=== PATIENT | female | born 1965 | race Caucasian/White ===

== ENCOUNTER 2021-05-22 15:53 | Inpatient (IN) | payer MEDICAID ==
[~2021-05-22] VITALS: Ht 154.9 cm; Wt 70.0 kg
[2021-05-22] MEDS: BLOOD SUGAR DIAGNOSTIC STRIP TEST SCH (08:00)
[2021-05-22 17:12] LABS: BASOPHILS % 0.6 % (0.0-2.0); EOSINOPHILS % 0.8 % (0.0-5.0); HEMATOCRIT. 35.3 % (36.0-48.0); HEMOGLOBIN. 12.2 g/dL (12.0-16.0); LYMPHOCYTES % 27.2 % (20.0-50.0); MEAN CORPUSCULAR HEMOGLOBIN 30.4 pg (28.0-32.0); MEAN CORPUSCULAR VOLUME 88.4 fL (81.0-99.0); MEAN PLATELET VOLUME 8.1 fl (7.4-10.4); MONOCYTES % 10.5 % (2.0-8.0); NEUTROPHILS % 60.9 % (40.0-76.0); PLATELET 263 x1000/uL (130-400); RED BLOOD CELL COUNT 3.99 mill/uL (4.2-5.4); RED CELL DISTRIBUTION WIDTH 13.7 % (11.6-14.6)
[2021-05-22 17:16] LABS: CHLORIDE 98 mEq/L (98-107)
[2021-05-22] MEDS ORDERED: ONDANSETRON HCL 4MG/2ML INJ IV STA (18:16)
[2021-05-22] MEDS ORDERED: MORPHINE SULFATE 4 MG/ML CPJ (NOT FOR IM USE) IV STA (18:16)
[2021-05-22 18:53] LABS: CLARITY URINE CLOUDY (CLEAR); COLOR URINE YELLOW (YELLOW); KETONES URINE TRACE (NEGATIVE); LEUKOCYTE ESTERASE URINE 1+ (NEGATIVE); NITRITE URINE NEGATIVE (NEGATIVE); OCCULT BLOOD URINE TRACE (NEGATIVE); PH URINE 5.5 (4.5-8.0); PROTEIN URINE 3+ (NEGATIVE); SPECIFIC GRAVITY URINE 1.015 (1.005-1.030); UROBILINOGEN URINE 0.2 E.U./dL (0.2-1.0)
[2021-05-22] MEDS ORDERED: METRONIDAZOLE 500 MG PREMIX 100 ML IV ONE (20:00)
[2021-05-22] MEDS ORDERED: CEFTRIAXONE 2 G PREMIX 50 ML IV ONE (20:00)
[2021-05-22] MEDS ORDERED: DOCUSATE SODIUM 100MG CAPSULE PO PRN (22:00)
[2021-05-22] MEDS ORDERED: TRAMADOL 50MG TABLET PO PRN (22:00)
[2021-05-22] MEDS ORDERED: DEXTROSE 50% WATER 50ML SYRINGE IV PRN (22:00)
[2021-05-22] MEDS ORDERED: MAGNESIUM/ALUMINUM HYDROXIDE/SIMETHICONE 30ML UDC PO PRN (22:00)
[2021-05-22] MEDS ORDERED: NITROGLYCERIN 0.4MG TABLET SL SL PRN (22:00)
[2021-05-22] MEDS ORDERED: ZOLPIDEM TARTRATE 5MG TABLET PO PRN (22:00)
[2021-05-22] MEDS ORDERED: ACETAMINOPHEN 325MG TABLET PO PRN ×2 (22:00)
[2021-05-22] MEDS ORDERED: ONDANSETRON HCL 4MG/2ML INJ IV PRN (22:00)
[2021-05-22] MEDS ORDERED: GUAIFENESIN 200MG/10ML SUGAR FREE UDC PO PRN (22:00)
[2021-05-22] MEDS ORDERED: DEXT 5%/LACTATED RINGERS 1,000 ML IV SCH (22:00)
[2021-05-22] MEDS ORDERED: IPRATROPIUM/ALBUTEROL 0.5-3(2.5)MG/3ML NEB NEB PRN (22:00)
[2021-05-22] MEDS: PIPERACILLIN/TAZ 3.375G PREMIX 50 ML IV SCH (22:08)
[2021-05-22] MEDS: CLONIDINE 0.1MG TABLET PO PRN (22:09)
[2021-05-22 22:29] LABS: ETHANOL BLOOD < 10 mg/dL
[2021-05-22] MEDS: AMLODIPINE 10MG TABLET PO SCH (22:30)
[2021-05-22] MEDS: ENOXAPARIN 30MG/0.3ML SYR SUBCUT SCH (22:30)
[2021-05-22 22:31] LABS: TOTAL IRON BINDING CAPACITY 218 ug/dL (250-450)
[2021-05-22 22:52] LABS: FOLIC ACID (FOLATE) SERUM 8.5 ng/mL (>5.38)
[2021-05-23] VITALS (8 sets, daily range): BP systolic 141–168; BP diastolic 62–72
[2021-05-23 04:32] LABS: BASOPHILS % 0.4 % (0.0-2.0); EOSINOPHILS % 1.4 % (0.0-5.0); HEMATOCRIT. 33.8 % (36.0-48.0); HEMOGLOBIN. 11.2 g/dL (12.0-16.0); LYMPHOCYTES % 38.2 % (20.0-50.0); MEAN CORPUSCULAR HEMOGLOBIN 29.6 pg (28.0-32.0); MEAN CORPUSCULAR VOLUME 89.2 fL (81.0-99.0); MONOCYTES % 14.2 % (2.0-8.0); NEUTROPHILS % 45.8 % (40.0-76.0); PLATELET 255 x1000/uL (130-400); RED BLOOD CELL COUNT 3.79 mill/uL (4.2-5.4); RED CELL DISTRIBUTION WIDTH 14.1 % (11.6-14.6)
[2021-05-23 04:41] LABS: CHLORIDE 99 mEq/L (98-107)
[2021-05-23 04:47] LABS: PHOSPHORUS 3.4 mg/dL (2.5-4.9)
[2021-05-23] MEDS: INSULIN LISPRO 100 UNITS/ML SUBCUT SCH ×4 (08:00→21:00)
[2021-05-23] MEDS: PIPERACILLIN/TAZ 3.375G PREMIX 50 ML IV SCH (08:15)
[2021-05-23] MEDS: FAMOTIDINE 20MG TABLET PO SCH (08:22)
[2021-05-23] MEDS: AMLODIPINE 10MG TABLET PO SCH (08:22)
[2021-05-23] MEDS ORDERED: NIFE-32 MT (10:27)
[2021-05-23] MEDS ORDERED: ONDA4TAB50 MT (10:27)
[2021-05-23] MEDS ORDERED: PANT40TA51 MT (10:27)
[2021-05-23] MEDS ORDERED: ATOR10TA MT (10:27)
[2021-05-23] MEDS ORDERED: FURO80TA87 MT (10:27)
[2021-05-23] MEDS ORDERED: MULT-1146 MT (10:27)
[2021-05-23] MEDS ORDERED: BICITRA PO (10:27)
[2021-05-23] MEDS ORDERED: SEVE800T8 MT (10:27)
[2021-05-23] MEDS ORDERED: POLY15DR31 EACHEYE (10:27)
[2021-05-23] MEDS: BLOOD SUGAR DIAGNOSTIC STRIP TEST SCH ×3 (13:07→21:37)
[2021-05-23 15:49] LABS: *AMPHETAMINES SCREEN URINE NEGATIVE (NEGATIVE); *BARBITURATES SCREEN URINE NEGATIVE (NEGATIVE); *BENZODIAZEPINES SCREEN URINE NEGATIVE (NEGATIVE); *COCAINE SCREEN URINE NEGATIVE (NEGATIVE); METHADONE URINE SCREEN NEGATIVE (NEGATIVE)
[2021-05-23 15:50] LABS: CANNABINOID URINE SCREEN NEGATIVE (NEGATIVE); OPIATES URINE SCREEN NEGATIVE (NEGATIVE); PHENCYCLIDINE URINE SCREEN NEGATIVE (NEGATIVE)
[2021-05-23 17:03] LABS: HEPATITIS B SURFACE ANTIGEN NEGATIVE
[2021-05-23] MEDS: ENOXAPARIN 30MG/0.3ML SYR SUBCUT SCH (21:58)
[2021-05-23] MEDS: CLONIDINE 0.1MG TABLET PO PRN (21:59)
[2021-05-23] MEDS: PIPERACILLIN/TAZOBACTAM 3.375 G in DEXTROSE 5% WATER 50 ML IV SCH (23:35)
[2021-05-24] VITALS (7 sets, daily range): BP systolic 132–173; BP diastolic 60–92
[2021-05-24] MEDS: INSULIN LISPRO 100 UNITS/ML SUBCUT SCH ×4 (06:43→21:12)
[2021-05-24] MEDS: BLOOD SUGAR DIAGNOSTIC STRIP TEST SCH ×4 (06:43→20:12)
[2021-05-24 07:05] LABS: BASOPHILS % 0.6 % (0.0-2.0); EOSINOPHILS % 2.3 % (0.0-5.0); HEMATOCRIT. 31.3 % (36.0-48.0); HEMOGLOBIN. 10.9 g/dL (12.0-16.0); LYMPHOCYTES % 36.3 % (20.0-50.0); MEAN CORPUSCULAR HEMOGLOBIN 31.5 pg (28.0-32.0); MEAN CORPUSCULAR VOLUME 90.3 fL (81.0-99.0); MEAN PLATELET VOLUME 7.9 fl (7.4-10.4); MONOCYTES % 14.2 % (2.0-8.0); NEUTROPHILS % 46.6 % (40.0-76.0); PLATELET 240 x1000/uL (130-400); RED BLOOD CELL COUNT 3.46 mill/uL (4.2-5.4); RED CELL DISTRIBUTION WIDTH 13.7 % (11.6-14.6)
[2021-05-24 07:26] LABS: PHOSPHORUS 3.2 mg/dL (2.5-4.9)
[2021-05-24] MEDS: AMLODIPINE 10MG TABLET PO SCH (08:58)
[2021-05-24] MEDS: FAMOTIDINE 20MG TABLET PO SCH (08:58)
[2021-05-24] MEDS: PIPERACILLIN/TAZOBACTAM 3.375 G in DEXTROSE 5% WATER 50 ML IV SCH ×2 (09:00→20:23)
[2021-05-24] MEDS: CLONIDINE 0.1MG TABLET PO PRN (16:12)
[2021-05-24] MEDS: ENOXAPARIN 30MG/0.3ML SYR SUBCUT SCH (21:09)
[2021-05-25] VITALS: BP 150/63
[2021-05-25 04:00] VITALS: BP_SYST 142; BP_SYST 160; BP_SYST 164; BP_DIAS 50; BP_DIAS 63; BP_DIAS 70
[2021-05-25 05:00] VITALS: BP 154/73
[2021-05-25] MEDS: BLOOD SUGAR DIAGNOSTIC STRIP TEST SCH ×2 (05:19→12:10)
[2021-05-25] MEDS: INSULIN LISPRO 100 UNITS/ML SUBCUT SCH ×2 (05:48→12:40)
[2021-05-25] MEDS: AMLODIPINE 10MG TABLET PO SCH (10:09)
[2021-05-25] MEDS: PIPERACILLIN/TAZOBACTAM 3.375 G in DEXTROSE 5% WATER 50 ML IV SCH (10:09)
[2021-05-25] MEDS: FAMOTIDINE 20MG TABLET PO SCH (10:09)
[2021-05-25 11:46] LABS: BASOPHILS % 0.5 % (0.0-2.0); EOSINOPHILS % 2.8 % (0.0-5.0); HEMATOCRIT. 33.4 % (36.0-48.0); HEMOGLOBIN. 10.9 g/dL (12.0-16.0); LYMPHOCYTES % 20.9 % (20.0-50.0); MEAN CORPUSCULAR HEMOGLOBIN 29.9 pg (28.0-32.0); MEAN CORPUSCULAR VOLUME 91.3 fL (81.0-99.0); MEAN PLATELET VOLUME 8.1 fl (7.4-10.4); MONOCYTES % 11.3 % (2.0-8.0); NEUTROPHILS % 64.5 % (40.0-76.0); PLATELET 251 x1000/uL (130-400); RED BLOOD CELL COUNT 3.66 mill/uL (4.2-5.4); RED CELL DISTRIBUTION WIDTH 14.2 % (11.6-14.6)
[2021-05-25 12:05] LABS: PHOSPHORUS 2.3 mg/dL (2.5-4.9)
[2021-05-25 12:41] VITALS: BP 156/74
== END 2021-05-25 16:20 | disposition home or self-care (01) | DRG 720 ==
LOC: ER 15:53 → MICUSO 21:16 → 8WST 05-23 09:27
PROVIDERS: ADMIT Internal Medicine; ATTEND Internal Medicine
PROC: 5A1D70Z Performance of Urinary Filtration, Intermittent, Less than 6 Hours Per Day (ICD-10-PCS; 2021-05-23)
PROC: 5A1D70Z Performance of Urinary Filtration, Intermittent, Less than 6 Hours Per Day (ICD-10-PCS; principal; 2021-05-25)
DX: A41.9 Sepsis, unspecified organism (principal); I12.0 Hypertensive chronic kidney disease with stage 5 chronic kidney disease or end stage renal disease; E44.1 Mild protein-calorie malnutrition; K81.0 Acute cholecystitis; E11.22 Type 2 diabetes mellitus with diabetic chronic kidney disease; E87.1 Hypo-osmolality and hyponatremia; N25.81 Secondary hyperparathyroidism of renal origin; K83.8 Other specified diseases of biliary tract; D64.9 Anemia, unspecified; N18.6 End stage renal disease; E78.00 Pure hypercholesterolemia, unspecified; E78.5 Hyperlipidemia, unspecified; R74.8 Abnormal levels of other serum enzymes; R79.89 Other specified abnormal findings of blood chemistry; Z20.822 Contact with and (suspected) exposure to COVID-19; R65.20 Severe sepsis without septic shock; Z99.2 Dependence on renal dialysis; Z82.49 Family history of ischemic heart disease and other diseases of the circulatory system; Z83.3 Family history of diabetes mellitus; Z79.899 Other long term (current) drug therapy; Z98.891 History of uterine scar from previous surgery; Z68.29 Body mass index [BMI] 29.0-29.9, adult
CPT/HCPCS: 36415; 71045; 74176; 76700; 78227; 80048; 80053; 80076; 80305; 80320; 81003; 82607; 82746; 82962; 83540; 83550; 83605; 83735; 83880; 84100; 84443; 84484; 85025; 86705; 86709; 86803; 87340; 87426; 93005; 93970; 99285; A9537; J0696; J1650; J1815; J2270; J2405; J2543; J3490; J7060; G0480

== ENCOUNTER 2021-07-03 11:21 | Inpatient (IN) | payer MEDICAID, OTHER ==
[2021-07-03] VITALS (7 sets, daily range): BP systolic 122–209; BP diastolic 71–107
[~2021-07-03] VITALS: Ht 154.9 cm; Wt 69.4 kg
[~2021-07-03 11:21] MED LIST: ATOR10TA MT; BICITRA PO; FURO80TA87 MT; MULT-1146 MT; NIFE-32 MT; ONDA4TAB50 MT; PANT40TA51 MT; POLY15DR31 EACHEYE; SEVE800T8 MT
[2021-07-03 11:53] LABS: BASOPHILS % 0.3 % (0.0-2.0); HEMATOCRIT. 33.8 % (36.0-48.0); HEMOGLOBIN. 11.2 g/dL (12.0-16.0); LYMPHOCYTES % 23.3 % (20.0-50.0); MEAN CORPUSCULAR HEMOGLOBIN 29.9 pg (28.0-32.0); MEAN CORPUSCULAR VOLUME 89.9 fL (81.0-99.0); MEAN PLATELET VOLUME 7.6 fl (7.4-10.4); MONOCYTES % 8.2 % (2.0-8.0); NEUTROPHILS % 67.2 % (40.0-76.0); PLATELET 264 x1000/uL (130-400); RED BLOOD CELL COUNT 3.76 mill/uL (4.2-5.4)
[2021-07-03 11:59] LABS: CHLORIDE 101 mEq/L (98-107)
[2021-07-03] MEDS ORDERED: ONDANSETRON HCL 4MG/2ML INJ IV ONE (12:00)
[2021-07-03] MEDS ORDERED: LABETALOL 5MG/ML SYR 20 MG/4 ML SYRINGE IV ONE (12:00)
[2021-07-03] MEDS ORDERED: MORPHINE SULFATE 2 MG/ML CPJ (NOT FOR IM USE) IV ONE (12:00)
[2021-07-03] MEDS ORDERED: NITROPRUSSIDE 50 MG in SODIUM CHLORIDE 0.9% 248 ML IV STA (13:22)
[2021-07-03] MEDS ORDERED: METOCLOPRAMIDE HCL 10MG/2ML VIAL IV ONE (13:30)
[2021-07-03] MEDS ORDERED: NITROPRUSSIDE 50 MG in SODIUM CHLORIDE 0.9% 248 ML IV NR (13:30)
[2021-07-03 14:04] LABS: CLARITY URINE CLEAR (CLEAR); COLOR URINE YELLOW (YELLOW); KETONES URINE TRACE (NEGATIVE); LEUKOCYTE ESTERASE URINE TRACE (NEGATIVE); NITRITE URINE NEGATIVE (NEGATIVE); OCCULT BLOOD URINE NEGATIVE (NEGATIVE); PH URINE >=9.0 (4.5-8.0); PROTEIN URINE 4+ (NEGATIVE); SPECIFIC GRAVITY URINE 1.013 (1.005-1.030); UROBILINOGEN URINE 0.2 E.U./dL (0.2-1.0)
[2021-07-03] MEDS ORDERED: VANCOMYCIN 1GM PMX (XELLIA) 200 ML IV NR (14:30)
[2021-07-03] MEDS ORDERED: CEFTRIAXONE 1 G PREMIX 50 ML IV NR (14:30)
[2021-07-03] MEDS ORDERED: HYDROMORPHONE HCL/PF 2MG/ML CPJ IV ONE (14:30)
[2021-07-03] MEDS ORDERED: ENOXAPARIN 40MG/0.4ML SYR SUBCUT SCH (16:15)
[2021-07-03] MEDS ORDERED: ZOLPIDEM TARTRATE 5MG TABLET PO PRN (16:15)
[2021-07-03] MEDS ORDERED: ONDANSETRON HCL 4MG/2ML INJ IV PRN (16:15)
[2021-07-03] MEDS ORDERED: CLONIDINE 0.1MG TABLET PO PRN (16:15)
[2021-07-03] MEDS ORDERED: LEVOFLOXACIN 500MG PREMIX 100 ML IV NR (16:30)
[2021-07-03] MEDS: DEXT 5%/0.45% NACL 1000ML 1,000 ML IV SCH (16:35)
[2021-07-03] MEDS ORDERED: NIFEDIPINE XL 60MG TAB PO NR (17:45)
[2021-07-03] MEDS: SEVELAMER CARBONATE 800 MG TABLET PO SCH (17:54)
[2021-07-03] MEDS: ENOXAPARIN 30MG/0.3ML SYR SUBCUT SCH (17:54)
[2021-07-03] MEDS: ONDANSETRON HCL 4MG/2ML INJ IV PRN (20:54)
[2021-07-03] MEDS: CLONIDINE 0.2MG TABLET PO SCH (21:32)
[2021-07-03] MEDS: ATORVASTATIN CALCIUM 10MG TABLET PO SCH (21:34)
[2021-07-04 00:07] VITALS: BP 180/75
[2021-07-04 04:00] VITALS: BP 195/90
[2021-07-04] MEDS: CLONIDINE 0.2MG TABLET PO SCH ×3 (04:50→21:05)
[2021-07-04 07:37] LABS: BASOPHILS % 0.3 % (0.0-2.0); EOSINOPHILS % 1.7 % (0.0-5.0); HEMATOCRIT. 27.5 % (36.0-48.0); HEMOGLOBIN. 9.3 g/dL (12.0-16.0); LYMPHOCYTES % 16.3 % (20.0-50.0); MEAN CORPUSCULAR HEMOGLOBIN 30.9 pg (28.0-32.0); MEAN CORPUSCULAR VOLUME 91.1 fL (81.0-99.0); MEAN PLATELET VOLUME 7.9 fl (7.4-10.4); MONOCYTES % 11.2 % (2.0-8.0); NEUTROPHILS % 70.5 % (40.0-76.0); PLATELET 195 x1000/uL (130-400); RED BLOOD CELL COUNT 3.02 mill/uL (4.2-5.4); RED CELL DISTRIBUTION WIDTH 14.5 % (11.6-14.6)
[2021-07-04 07:38] LABS: CHLORIDE 102 mEq/L (98-107)
[2021-07-04 07:48] LABS: PHOSPHORUS 3.9 mg/dL (2.5-4.9)
[2021-07-04 08:00] VITALS: BP 175/95
[2021-07-04] MEDS: PANTOPRAZOLE 40MG DR TABLET PO SCH (09:06)
[2021-07-04] MEDS: NIFEDIPINE XL 60MG TAB PO SCH (09:07)
[2021-07-04] MEDS: FOLIC ACID/VITAMIN B COMP W-C TABLET PO SCH (09:07)
[2021-07-04] MEDS: SEVELAMER CARBONATE 800 MG TABLET PO SCH ×2 (09:07→13:20)
[2021-07-04 12:00] VITALS: BP 182/90
[2021-07-04] MEDS ORDERED: HYDRALAZINE HCL 100MG TABLET PO NR (13:00)
[2021-07-04] MEDS: DEXT 5%/0.45% NACL 1000ML 1,000 ML IV SCH (13:20)
[2021-07-04 16:00] VITALS: BP 141/85
[2021-07-04] MEDS: ENOXAPARIN 30MG/0.3ML SYR SUBCUT SCH (18:36)
[2021-07-04 20:00] VITALS: BP 113/60
[2021-07-04] MEDS: HYDRALAZINE HCL 100MG TABLET PO SCH (21:05)
[2021-07-04] MEDS: ATORVASTATIN CALCIUM 10MG TABLET PO SCH (21:05)
[2021-07-05] VITALS: BP 120/58
[2021-07-05 04:00] VITALS: BP 129/60
[2021-07-05] MEDS: CLONIDINE 0.2MG TABLET PO SCH ×2 (06:51→15:09)
[2021-07-05 07:44] LABS: BASOPHILS % 0.8 % (0.0-2.0); HEMATOCRIT. 28.7 % (36.0-48.0); HEMOGLOBIN. 9.7 g/dL (12.0-16.0); MEAN CORPUSCULAR HEMOGLOBIN 31.1 pg (28.0-32.0); MEAN CORPUSCULAR VOLUME 91.8 fL (81.0-99.0); MEAN PLATELET VOLUME 8.1 fl (7.4-10.4); MONOCYTES % 10.6 % (2.0-8.0); NEUTROPHILS % 47.6 % (40.0-76.0); PLATELET 229 x1000/uL (130-400); RED BLOOD CELL COUNT 3.13 mill/uL (4.2-5.4); RED CELL DISTRIBUTION WIDTH 14.5 % (11.6-14.6)
[2021-07-05 08:00] VITALS: BP 98/55
[2021-07-05 08:14] LABS: PHOSPHORUS 2.5 mg/dL (2.5-4.9)
[2021-07-05] MEDS: NIFEDIPINE XL 60MG TAB PO SCH (08:58)
[2021-07-05] MEDS: HYDRALAZINE HCL 100MG TABLET PO SCH (08:58)
[2021-07-05] MEDS: PANTOPRAZOLE 40MG DR TABLET PO SCH (08:59)
[2021-07-05] MEDS: FOLIC ACID/VITAMIN B COMP W-C TABLET PO SCH (08:59)
[2021-07-05 12:00] VITALS: BP 123/59
[2021-07-05 16:00] VITALS: BP 132/65
[2021-07-05] MEDS ORDERED: LEVOFLOXACIN 250MG PREMIX 50 ML IV SCH (16:00)
[2021-07-05] MEDS: METOCLOPRAMIDE HCL 5MG TABLET PO SCH (17:36)
[2021-07-05] MEDS: ENOXAPARIN 30MG/0.3ML SYR SUBCUT SCH (17:37)
[2021-07-05 17:45] LABS: HEPATITIS B SURFACE ANTIGEN NEGATIVE
[2021-07-05 20:00] VITALS: BP 146/56
[2021-07-05] MEDS: ATORVASTATIN CALCIUM 10MG TABLET PO SCH (21:15)
[2021-07-05] MEDS: HYDRALAZINE HCL 50MG TABLET PO SCH (21:16)
[2021-07-05] MEDS: CLONIDINE 0.1MG TABLET PO SCH (21:16)
[2021-07-06] VITALS (7 sets, daily range): BP systolic 103–180; BP diastolic 57–73
[2021-07-06] MEDS: METOCLOPRAMIDE HCL 5MG TABLET PO SCH ×5 (00:40→23:23)
[2021-07-06] MEDS: CLONIDINE 0.1MG TABLET PO SCH (05:56)
[2021-07-06 07:52] LABS: BASOPHILS % 0.3 % (0.0-2.0); EOSINOPHILS % 5.3 % (0.0-5.0); HEMATOCRIT. 27.1 % (36.0-48.0); HEMOGLOBIN. 9.2 g/dL (12.0-16.0); LYMPHOCYTES % 32.7 % (20.0-50.0); MEAN CORPUSCULAR HEMOGLOBIN 30.9 pg (28.0-32.0); MEAN CORPUSCULAR VOLUME 90.7 fL (81.0-99.0); MEAN PLATELET VOLUME 8.1 fl (7.4-10.4); MONOCYTES % 11.5 % (2.0-8.0); NEUTROPHILS % 50.2 % (40.0-76.0); PLATELET 212 x1000/uL (130-400); RED BLOOD CELL COUNT 2.99 mill/uL (4.2-5.4); RED CELL DISTRIBUTION WIDTH 14.2 % (11.6-14.6)
[2021-07-06] MEDS: HYDRALAZINE HCL 50MG TABLET PO SCH (09:10)
[2021-07-06] MEDS: PANTOPRAZOLE 40MG DR TABLET PO SCH (09:10)
[2021-07-06] MEDS: FOLIC ACID/VITAMIN B COMP W-C TABLET PO SCH (09:10)
[2021-07-06] MEDS: NIFEDIPINE XL 60MG TAB PO SCH ×2 (09:11→20:31)
[2021-07-06] MEDS ORDERED: HYDRALAZINE HCL 50MG TABLET PO SCH (12:15)
[2021-07-06] MEDS: HYDRALAZINE HCL 100MG TABLET PO SCH ×2 (16:00→22:00)
[2021-07-06] MEDS: ATORVASTATIN CALCIUM 10MG TABLET PO SCH (20:30)
[2021-07-06] MEDS: ENOXAPARIN 30MG/0.3ML SYR SUBCUT SCH (20:30)
[2021-07-07 00:42] VITALS: BP 118/60
[2021-07-07] MEDS: HYDRALAZINE HCL 100MG TABLET PO SCH (05:13)
[2021-07-07] MEDS: METOCLOPRAMIDE HCL 5MG TABLET PO SCH ×4 (05:13→23:50)
[2021-07-07 08:00] VITALS: BP 112/68
[2021-07-07] MEDS: FOLIC ACID/VITAMIN B COMP W-C TABLET PO SCH (08:52)
[2021-07-07] MEDS: PANTOPRAZOLE 40MG DR TABLET PO SCH (08:57)
[2021-07-07] MEDS: NIFEDIPINE XL 60MG TAB PO SCH ×2 (09:00→21:00)
[2021-07-07 09:19] LABS: BASOPHILS % 0.3 % (0.0-2.0); EOSINOPHILS % 3.2 % (0.0-5.0); HEMATOCRIT. 28.7 % (36.0-48.0); HEMOGLOBIN. 9.9 g/dL (12.0-16.0); LYMPHOCYTES % 32.2 % (20.0-50.0); MEAN CORPUSCULAR HEMOGLOBIN 31.3 pg (28.0-32.0); MEAN CORPUSCULAR VOLUME 91.5 fL (81.0-99.0); MEAN PLATELET VOLUME 8.4 fl (7.4-10.4); MONOCYTES % 11.8 % (2.0-8.0); NEUTROPHILS % 52.5 % (40.0-76.0); PLATELET 223 x1000/uL (130-400); RED BLOOD CELL COUNT 3.14 mill/uL (4.2-5.4); RED CELL DISTRIBUTION WIDTH 14.3 % (11.6-14.6)
[2021-07-07 09:45] LABS: PHOSPHORUS 2.3 mg/dL (2.5-4.9)
[2021-07-07 12:00] VITALS: BP 124/67
[2021-07-07 16:00] VITALS: BP 140/71
[2021-07-07] MEDS: HYDRALAZINE HCL 50MG TABLET PO SCH (17:01)
[2021-07-07] MEDS: ENOXAPARIN 30MG/0.3ML SYR SUBCUT SCH (17:02)
[2021-07-07 20:00] VITALS: BP 151/68
[2021-07-07] MEDS: ATORVASTATIN CALCIUM 10MG TABLET PO SCH (21:00)
[2021-07-08] VITALS: BP 168/75
[2021-07-08 04:00] VITALS: BP 140/66
[2021-07-08] MEDS: METOCLOPRAMIDE HCL 5MG TABLET PO SCH ×4 (06:10→23:31)
[2021-07-08] MEDS: HYDRALAZINE HCL 50MG TABLET PO SCH ×2 (06:10→16:31)
[2021-07-08 08:00] VITALS: BP 132/59
[2021-07-08] MEDS: FOLIC ACID/VITAMIN B COMP W-C TABLET PO SCH (08:33)
[2021-07-08] MEDS: NIFEDIPINE XL 60MG TAB PO SCH ×2 (08:33→20:08)
[2021-07-08] MEDS: PANTOPRAZOLE 40MG DR TABLET PO SCH (08:33)
[2021-07-08 12:00] VITALS: BP 148/67
[2021-07-08] MEDS ORDERED: BISACODYL 10MG SUPP PR PRN (12:45)
[2021-07-08 16:00] VITALS: BP 141/70
[2021-07-08] MEDS: ENOXAPARIN 30MG/0.3ML SYR SUBCUT SCH (16:31)
[2021-07-08] MEDS: ATORVASTATIN CALCIUM 10MG TABLET PO SCH (20:08)
[2021-07-08 20:15] VITALS: BP 145/62
[2021-07-09] VITALS: BP 141/60
[2021-07-09 04:00] VITALS: BP 141/72
[2021-07-09] MEDS: HYDRALAZINE HCL 50MG TABLET PO SCH ×2 (05:01→15:46)
[2021-07-09] MEDS: METOCLOPRAMIDE HCL 5MG TABLET PO SCH ×3 (05:01→15:35)
[2021-07-09 05:51] LABS: BASOPHILS % 0.3 % (0.0-2.0); EOSINOPHILS % 2.1 % (0.0-5.0); HEMATOCRIT. 27.5 % (36.0-48.0); HEMOGLOBIN. 9.3 g/dL (12.0-16.0); MEAN CORPUSCULAR HEMOGLOBIN 30.8 pg (28.0-32.0); MEAN CORPUSCULAR VOLUME 90.6 fL (81.0-99.0); MEAN PLATELET VOLUME 8.4 fl (7.4-10.4); NEUTROPHILS % 59.6 % (40.0-76.0); PLATELET 192 x1000/uL (130-400); RED BLOOD CELL COUNT 3.03 mill/uL (4.2-5.4); RED CELL DISTRIBUTION WIDTH 14.5 % (11.6-14.6)
[2021-07-09 06:08] LABS: PHOSPHORUS 3.2 mg/dL (2.5-4.9)
[2021-07-09 08:00] VITALS: BP 150/72
[2021-07-09] MEDS: ONDANSETRON HCL 4MG/2ML INJ IV PRN ×3 (08:11→21:54)
[2021-07-09] MEDS: NIFEDIPINE XL 60MG TAB PO SCH ×2 (09:00→21:55)
[2021-07-09] MEDS: FOLIC ACID/VITAMIN B COMP W-C TABLET PO SCH (09:00)
[2021-07-09] MEDS: PANTOPRAZOLE 40MG DR TABLET PO SCH (09:00)
[2021-07-09 12:00] VITALS: BP 167/77
[2021-07-09] MEDS ORDERED: SORBITOL 70% SOLN 30ML PO PRN (15:00)
[2021-07-09] MEDS ORDERED: LORAZEPAM 0.5MG TABLET PO NR (15:00)
[2021-07-09] MEDS: ENOXAPARIN 30MG/0.3ML SYR SUBCUT SCH (15:36)
[2021-07-09 15:53] VITALS: BP 161/74
[2021-07-09] MEDS ORDERED: NALOXONE HCL 0.4MG/ML VIAL IV PRN (16:30)
[2021-07-09] MEDS ORDERED: MORPHINE SULFATE 2 MG/ML CPJ (NOT FOR IM USE) IV NR (16:30)
[2021-07-09 20:00] VITALS: BP 167/72
[2021-07-09] MEDS: ATORVASTATIN CALCIUM 10MG TABLET PO SCH (21:56)
[2021-07-10] VITALS: BP 178/85
[2021-07-10] MEDS: METOCLOPRAMIDE HCL 5MG TABLET PO SCH ×4 (00:05→17:06)
[2021-07-10] MEDS: DIPHENHYDRAMINE 25MG CAPSULE PO PRN ×2 (00:05→22:47)
[2021-07-10] MEDS: HYDROCODONE/ACETAMINOPHEN 5/325MG TABLET PO PRN ×3 (00:08→08:51)
[2021-07-10 04:00] VITALS: BP 177/87
[2021-07-10] MEDS: ONDANSETRON HCL 4MG/2ML INJ IV PRN ×2 (04:09→08:51)
[2021-07-10] MEDS: HYDRALAZINE HCL 50MG TABLET PO SCH ×2 (05:27→17:06)
[2021-07-10 07:14] LABS: BASOPHILS % 0.2 % (0.0-2.0); EOSINOPHILS % 0.1 % (0.0-5.0); HEMATOCRIT. 27.6 % (36.0-48.0); HEMOGLOBIN. 9.6 g/dL (12.0-16.0); LYMPHOCYTES % 15.7 % (20.0-50.0); MEAN CORPUSCULAR HEMOGLOBIN 31.8 pg (28.0-32.0); MEAN CORPUSCULAR VOLUME 91.5 fL (81.0-99.0); MEAN PLATELET VOLUME 8.6 fl (7.4-10.4); MONOCYTES % 5.8 % (2.0-8.0); NEUTROPHILS % 78.2 % (40.0-76.0); PLATELET 209 x1000/uL (130-400); RED BLOOD CELL COUNT 3.02 mill/uL (4.2-5.4); RED CELL DISTRIBUTION WIDTH 14.3 % (11.6-14.6)
[2021-07-10 07:38] LABS: PHOSPHORUS 3.9 mg/dL (2.5-4.9)
[2021-07-10 08:00] VITALS: BP 156/72
[2021-07-10] MEDS: FOLIC ACID/VITAMIN B COMP W-C TABLET PO SCH (08:49)
[2021-07-10] MEDS: PANTOPRAZOLE 40MG DR TABLET PO SCH (08:49)
[2021-07-10] MEDS: NIFEDIPINE XL 60MG TAB PO SCH ×2 (09:00→22:47)
[2021-07-10 11:34] VITALS: BP 136/75
[2021-07-10] MEDS: ACETAMINOPHEN 325MG TABLET PO PRN ×2 (12:09→17:07)
[2021-07-10] MEDS ORDERED: FAMOTIDINE 20MG/2ML VIAL IV SCH (13:45)
[2021-07-10] MEDS: ONDANSETRON HCL 4MG/2ML INJ IV SCH ×2 (14:13→20:27)
[2021-07-10] MEDS ORDERED: NA PHOS,M-B/NA PHOS,DI-BA ENEMA 118ML PR PRN (14:45)
[2021-07-10 15:46] VITALS: BP 168/80
[2021-07-10] MEDS: ENOXAPARIN 30MG/0.3ML SYR SUBCUT SCH (16:06)
[2021-07-10 20:00] VITALS: BP 189/90
[2021-07-10] MEDS ORDERED: FAMOTIDINE 20MG TABLET PO SCH (21:00)
[2021-07-10] MEDS ORDERED: PANTOPRAZOLE 40MG DR TABLET PO SCH (21:00)
[2021-07-10] MEDS ORDERED: CLONIDINE HCL 0.3MG/24HR PATCH TD SCH (22:00)
[2021-07-10] MEDS: METOCLOPRAMIDE HCL 10MG/2ML VIAL IV SCH (22:47)
[2021-07-10] MEDS: ATORVASTATIN CALCIUM 10MG TABLET PO SCH (22:47)
[2021-07-11] VITALS: BP 186/88
[2021-07-11] MEDS: ONDANSETRON HCL 4MG/2ML INJ IV SCH (00:43)
[2021-07-11] MEDS: ACETAMINOPHEN 325MG TABLET PO PRN (00:44)
[2021-07-11 04:00] VITALS: BP 163/80
[2021-07-11] MEDS ORDERED: HYDRALAZINE HCL 100MG TABLET PO SCH (06:00)
[2021-07-11] MEDS: METOCLOPRAMIDE HCL 10MG/2ML VIAL IV SCH (06:32)
[2021-07-11] MEDS ORDERED: PANTOPRAZOLE SODIUM 40 MG/VIAL IV SCH (09:00)
== END 2021-07-11 08:33 | disposition left against medical advice (07) ==
LOC: ER 11:21 → EDBEDREQSVC 13:41 → EDBEDREQ 13:41 → EDBEDREQTM 13:41 → ENRESERV 15:26 → MICUSO 15:45 → EDBEDREQ 16:01 → 7WST 19:01 → 6WST 07-10 09:30
PROVIDERS: ADMIT Internal Medicine Pulmonary Disease; ATTEND Internal Medicine Pulmonary Disease
PROC: 5A1D70Z Performance of Urinary Filtration, Intermittent, Less than 6 Hours Per Day (ICD-10-PCS; 2021-07-04)
PROC: 5A1D70Z Performance of Urinary Filtration, Intermittent, Less than 6 Hours Per Day (ICD-10-PCS; 2021-07-09)
PROC: 5A1D70Z Performance of Urinary Filtration, Intermittent, Less than 6 Hours Per Day (ICD-10-PCS; principal; 2021-07-10)
DX: K83.8 Other specified diseases of biliary tract (principal); U07.1 COVID-19; I12.0 Hypertensive chronic kidney disease with stage 5 chronic kidney disease or end stage renal disease; E11.22 Type 2 diabetes mellitus with diabetic chronic kidney disease; N25.81 Secondary hyperparathyroidism of renal origin; D64.9 Anemia, unspecified; I16.0 Hypertensive urgency; E78.5 Hyperlipidemia, unspecified; N18.6 End stage renal disease; Z98.890 Other specified postprocedural states; Z99.2 Dependence on renal dialysis; Z78.9 Other specified health status; Z82.49 Family history of ischemic heart disease and other diseases of the circulatory system; Z83.3 Family history of diabetes mellitus; Z90.49 Acquired absence of other specified parts of digestive tract; Z98.891 History of uterine scar from previous surgery; Z53.29 Procedure and treatment not carried out because of patient's decision for other reasons
CPT/HCPCS: 36415; 71045; 74176; 74181; 80048; 80053; 80076; 81003; 82962; 83605; 83735; 84100; 84484; 85025; 86705; 86709; 86803; 87340; 87426; 93005; 99285; J0696; J1170; J1650; J1956; J2270; J2405; J2765; J3370; J3490; J7050; J8597; Q0163; U0003; U0005